=== PATIENT | male | born 2000 | race Caucasian/White ===

== ENCOUNTER 2023-12-03 15:03 | Emergency (ER) | payer OTHER, SELFPAY ==
[2023-12-03 15:22] VITALS: BP 130/88; PULSE 94; RESP 16; TEMP 36.8; O2SAT 100
--- NOTE | 2023-12-03 17:37 | ED.SKABFB ---
HPI - Skin/Abscess/Foreign Bdy General Chief complaint: Skin/Abscess/Foreign Body Stated complaint: Abscess Time Seen by Provider: 12/03/23 15:45 Source: patient Mode of arrival: ambulatory Limitations: no limitations History of Present Illness HPI narrative: 23 yo M presents with c/o painful pimple to L side chin. thinks was pimple or ingrown hair. popped two days ago. swelling and pain worse. concerned he needs abx. All systems reviewed and negative except as noted above. Related Data Allergies Allergy/AdvReac Type Severity Reaction Status Date / Time No Known Allergies Allergy Verified 12/03/23 15:06 Review of Systems Review of Systems: CONSTITUTIONAL: Denies fever, chills, or sweats. EYES: Denies visual changes, redness, or discharge. ENT: Denies rhinorrhea, congestion, sore throat, or otalgia. CARDIOVASCULAR: Denies chest pain, palpitations, or edema. RESPIRATORY: Denies cough or dyspnea. GASTROINTESTINAL: Denies abdominal pain, nausea, vomiting, or diarrhea. GENITOURINARY: Denies dysuria or hematuria. SKIN: reports pain and redness after popping pimple MUSCULOSKELETAL: Denies back pain, joint pain, or myalgia. NEUROLOGIC: Denies headache, numbness, or weakness. PSYCHIATRIC: Denies anxiety or depression. All other systems reviewed are negative, except as documented in HPI. [facility] Past Medical History Medical History Syphilis Family History Family History Sibling Diabetes mellitus Asthma Grandparent Hypertension Cerebrovascular accident Family history of Parkinson's disease Social History Social History Smoking status: Current some day smoker Tobacco type: e-cigarettes/vaping Second hand tobacco smoke exposure: No Alcohol intake: current Substance use: current Substance use type: marijuana Lack of Transportation: No Lack of Food: Never True Current Housing: I Have Housing Concerned About Future Housing: No Difficulty Paying Gas/Electric Bills: No Difficulty Paying for Meds: No Currently Unemployed: No Education: High School Diploma/GED Difficulty w/ Childcare or Family Care: No Comments At time of signature, agree with nursing past medical, surgical, social and family history. There is no relevant family history pertinent to the presenting complaint. Exam Narrative: GENERAL: This is a well-nourished, well-developed patient, in no apparent distress. HEAD: normocephalic, atraumatic. EYES: PERRL. Sclera clear/white. Vision is grossly intact. EARS: External ears normal NOSE: External nose normal NECK: Neck supple, non-tender without lymphadenopathy, masses or thyromegaly. CARDIOVASCULAR: Regular rate and rhythm without murmurs, gallops, or rubs. RESPIRATORY: Clear to auscultation. Breath sounds equal bilaterally. No wheezes, rales, or rhonchi. SKIN: warm, Dry, intact with no suspicious lesions or rash, good texture and turgor. erythematous lesion approx. 2cm diameter. tendern on palpation with some mild surrounding erythema. no fluctuance. NEURO: awake, alert, and oriented to person, place and time. There were no obvious focal neurologic abnormalities. EXTREMITIES: No joint tenderness, effusion, or edema noted. Course Course Level of Care: Express Care Visit Vital Signs Vital signs: Vital Signs Temperature 36.8 C 12/03/23 15:22 Pulse Rate 94 12/03/23 15:22 Respiratory Rate 16 12/03/23 15:22 Blood Pressure 130/88 12/03/23 15:22 Pulse Oximetry 100 12/03/23 15:22 Temperature 36.8 C 12/03/23 15:22 Pulse Rate 94 12/03/23 15:22 Respiratory Rate 16 12/03/23 15:22 Blood Pressure 130/88 12/03/23 15:22 Pulse Oximetry 100 12/03/23 15:22 Reviewed MDM - Skin/Abscess/Foreign Bdy MDM Narrative Medical decision making narrative: Patient is aware of diagnos
== END 2023-12-03 16:00 | disposition home or self-care (01) ==
PROVIDERS: Emergency Provider Nurse Practitioner Family; PCP Family Medicine
DX: L03.211 Cellulitis of face (principal); F17.290 Nicotine dependence, other tobacco product, uncomplicated; F12.90 Cannabis use, unspecified, uncomplicated
CPT/HCPCS: 99213; G0463

== ENCOUNTER 2025-06-16 16:39 | Emergency (ER) | payer OTHER, SELFPAY ==
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
[2025-06-16 16:40] VITALS: BP 125/72; PULSE 73; RESP 15; TEMP 36.7; O2SAT 100
--- OUTSIDE RECORDS SUMMARY | 2025-06-16 16:42 | XMS_ITS | Clinical Summary ---
Author Organization [facility] Physician Office Building [address] [place] [address] Care Team Providers Care Finger Lift Operator Name Role Phone Petr Peralta MD Primary Care Provider [phone] Martina DA SILVA MD, [facility] [phone] Allergies No known active allergies Medications Vyvanse 20 mg capsule Take 1 capsule (20 mg total) by mouth every morning 02/16/2023 Active Active Problems Problem Noted Date Diagnosed Date Epigastric hernia 03/28/2023 Auditory hallucination Visual hallucination Immunizations Immunization Administration Dates Next Due Pfizer SARS-CoV-2 Monovalent Vaccination (12+ Yrs) PURPLE 03/23/2021,03/02/2021 Medical History Medical History Date Comments ADHD (attention deficit hyperactivity disorder) Anxiety Depression Motion sickness Family History Medical History Relation Name Comments Diabetes Brother No Known Problems Father Migraines Mother No Known Problems Sister Relation Name Status Comments Brother Father Mother Sister Social History Tobacco Use Types Packs/Day Years Used Date Smoking Tobacco: Some Days Cigarettes Smokeless Tobacco: Never Tobacco Cessation:Ready to Q uit: No; Counseling Given: Yes Alcohol Use Standard Drinks/Week Comments Yes 0 (1 standard drink = 0.6 oz pur e alcohol) Personal Safety Answer Date Recorded Have you ever been in or are you currently in a harmful physical or emotional relationship or is someone making you feel afraid or unsafe? 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 Gender Identity Not on file Sexual Orientation Not on file Obstetrics History Last Filed Vital Signs Vital Sign Reading Time Taken Comments Blood Pressure 117/86 04/05/2023 12:40 PM CDT Pulse 60 04/05/2023 12:45 PM CDT Temperature 36.2 C (97.1 F) 04/05/2023 12:12 PM CDT Respiratory Rate 12 04/05/2023 12:45 PM CDT Oxygen Saturation 97% 04/05/2023 12:45 PM CDT Inhaled Oxygen Concentration - - Weight 60.3 kg (133 lb) 04/05/2023 10:19 AM CDT Height 180.3 cm (5' 11) 04/05/2023 10:19 AM CDT Body Mass Index 18.55 04/05/2023 10:19 AM CDT Plan of Treatment Health Maintenance Due Date Last Done Comments Depression Screening 2001 Hepatitis C Screening 2001 DTaP/Tdap/Td Vaccine (2 - Tdap) 2012 05 2 Varicella Vaccines (1 of 2 - 13+ 2-dose series) 2014 HPV Vaccines (1 - Male 3-dose series) 2016 Meningococcal B Vaccine (1 o f 2 - Standard) 2017 Regular Well Visit/Exam 18-64 2019 Pneumococcal vaccine <65 (1 of 2 - PCV) 2020 Covid-19 Vaccine (3 - season) 07/13/202410/2021, 03/02/2021 Influenza Vaccine (#1) 2025 09/09/2018 Hepatitis B Screening Completed 07/18/2002 Insurance DESIRAE CIGNA CIGNA CIG Care Teams Finger Lift Operator Relationship Specialty Start Date End Date Petr Peralta MD PCP - General Family Medicine 10/18/18 [place] [id number] [address] Consulting Physician Neurology 10/18/18
--- OUTSIDE RECORDS SUMMARY | 2025-06-16 16:42 | XMS_ITS | Clinical Summary ---
Author Organization [facility] Address [address] [place] [address] Care Team Providers Care Chip Bin Conveyor Tender Name Role Phone Unavailable Primary Care Provider Unavailabl e Source Comments PLEASE NOTE, if this patient is a minor, it may be UNLAWFUL to discuss sensitive information that is contained in these records (such as FAMILY PLANNING, MENTAL HEALTH or SUBSTANCE ABUSE) with the minor patient's parent or other person without the patient's specific authorization.[facility] Allergies No known active allergies Encounters Date Type Department Care Team Description 03/26/2025 2:00 PM CDT Office Visit [facility] [address] [place] [address] [address] from Last 3 Months Social History Tobacco Use Types Packs/Day Years Used Date Smoking Tobacco: Never Assessed Sex and Gender Information Value Date Recorded Sex Assigned at Male 05/06/2025 12:54 PM PDT Legal Sex Male 11:11 AM PDT Gender Identity Male 03/27/2025 2:41 PM PDT Sexual Orientation Kat 05/06/2025 12 :54 PM PDT Plan of Treatment Health Maintenance Due Date Last Done Comments Anxiety Screening 2001 Hepatitis B Screening 2001 Hepatitis C Screening 2001 STI Counseling 2001 Tobacco Screening 2001 Imm-Hepatitis B (2 of 3 - 3-dose series) 08/15/2002 07/18/2002 Imm-Varicella (1 of 2 - 13+ 2-dose series) 2014 Imm-HPV (1 - Male 3-dose series) 2016 Hypertension Screening (#1) 2019 Imm-DTaP/Tdap/Td (2 - Tdap) 2020 03/27/2002 [id number] (3 - 2024-25 season) 2024 021, 03/02/2021 Alcohol and Drug Screen 11/12/2024 Depression Annual Screen 11/12/2024 Imm-Influenza (#1) 2025 HIV Screening 03/23/2026 03/23/2025 Procedures Procedure Name Priority Date/Time Associated Diagnosis Comments GONORRHEA/ CHLAMYDIA TRACHOMATIS, ABSTRACTED Routine 03/23/2025 GONORRHEA/ CHLAMYDIA TRACHOMATIS, ABSTRACTED Routine 03/23/2025 HIV 1/2 RAPID (POCT) [id number] Routine 03/23/2025 from Last 3 Months Results * GONORRHEA/ CHLAMYDIA TRACHOMATIS Urine Routine (03/23/2025) Only the most recent of2 resultswithin the time period is included. CHLAMYDIA NEGATIVE NEGATIVE [facility] NEISSERIA GONORRHEA NEGATIVE NEGATIVE [facility] Urine 03/23/2025 us Provider [facility] BODY FLUIDS AND STOOLS AMBUL ATORY Final Result [facility] [address] [place] [address], [place] [phone] * HIV 1/2 RAPID (POCT) [id number] Routine (03/23/2025) HIV 1/2 AB negative Non-Reactive - Reactive [facility] INTERNAL QC pass [facility] Blood Blood / Unknown 03/23/2025 us Provider [facility] - BLOOD DRAW Final Result Performing Organization Address [facility]/ZIP Co de Phone Number [facility] [address] [place] [address], [place] [phone] from Last 3 Months Insurance CIGNA
--- OUTSIDE RECORDS SUMMARY | 2025-06-16 16:42 | XMS_ITS | Patient Health Record ---
Author Organization [facility] Address [address] [place], [place] [address] Care Team Providers Care Corporate Secretary Name Role Phone Victorino Topete Unavailable [phone] Reason For Referral No Information Plan Of Treatment No Information
--- OUTSIDE RECORDS SUMMARY | 2025-06-16 16:42 | XMS_ITS | Patient Health Record ---
Author Organization [facility] [employer] [facility] Address [address] [place] [address] Care Team Providers Care Ui Software Engineer Name Role Phone Wilbert Carlisle Unavailable [phone] Reason For Referral No Information Medications Medication SIG (Take, Route, Frequency, Duration) Notes Start Date End Date Status Ciprofloxacin-dexAMETHason e 0.3-0.1 % Otic 06/17/2021 Active Immunizations Vaccine Route Administration Date Status Comme nts Meningococcal MCV4P Unknown 07/28/2019 Administered Novel [id number], preservative free Unknown 09/09/2018 Administered Plan Of Treatment No Information Insurance Providers Payer Name Payer Address Payer Phone Subscriber Number Group Number Insured Name Patient Relationship to Insured Coverage Start Date Coverage End Date Cigna [address] MARIA FERNANDA NELSON [phone] [id number] PAULY GARCIA Self - patient is the insured
--- OUTSIDE RECORDS SUMMARY | 2025-06-16 16:42 | XMS_ITS | Referral Summary ---
Author Organization [facility] Physician Office Building [address] [place] [address] Care Team Providers Care Watch Parts Inspector Name Role Phone Petr Peralta MD Primary Care Provider [phone] Martina DA SILVA MD, [facility] [phone] Allergies No known active allergies Medications Vyvanse 20 mg capsule Take 1 capsule (20 mg total) by mouth every morning 02/16/2023 Active Active Problems Problem Noted Date Diagnosed Date Epigastric hernia 03/28/2023 Auditory hallucination Visual hallucination Immunizations Immunization Administration Dates Next Due Pfizer SARS-CoV-2 Monovalent Vaccination (12+ Yrs) PURPLE 03/23/2021,03/02/2021 Social History Tobacco Use Types Packs/Day Years [...] on file 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 Gender Identity Not on file Sexual Orientation Not on file Last Filed Vital Signs Vital Sign Reading [...] 04/05/2023 10:19 AM CDT Plan of Treatment Not on file Insurance [employer] [facility] [employer] Address: [facility] [address] [place] [address] CIGNA [facility] [employer] Address: [address] [place] [address] [facility] [employer] Address: [address] [place] [address] CIGNA [facility] [employer] Address: [address] [place] [address] Care Teams Watch Parts Inspector Relationship Specialty Start Date End Date Petr Peralta MD PCP - General Family Medicine 10/18/18 [place] [address] [place] [address] Consulting Physician Neurology 10/18/18
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
[2025-06-16] MEDS: CYCLOBENZAPRINE HCL 10 MG TABLET PO (18:03)
[2025-06-16] MEDS: ACETAMINOPHEN 500 MG TABLET 1000 MG PO (18:03)
[2025-06-16 18:15] LABS: Hematocrit 43.6 % (42.0-52.0); Hemoglobin 14.8 g/dL (14.0-18.0); Immature Granulocyte Percent A 0.3 % (0-0.5); Lymphocytes Absolute Auto 2.24 K/mm3 (0.9-3.2); Mean Corpuscular HGB Conc 33.9 g/dl (32-36); Mean Corpuscular Hemoglobin 31.6 pg (26-34); Mean Corpuscular Volume 93.0 fl (80-100); Nucleated Red Blood Cells Absolute Auto 0.000 K/mm3 (0.0-0.012); Nucleated Red Blood Cells Perc 0.0 % (0.0-0.2); Platelet Count Result 228 k/mm3 (150-375); Red Blood Count 4.69 M/mm3 (4.6-6.20); White Blood Count 6.6 K/mm3 (4.5-10.0)
[2025-06-16 18:32] LABS: INR 1.1; Prothrombin Time 14.0 Seconds (11.1-14.7)
--- OUTSIDE RECORDS SUMMARY | 2025-06-16 18:32 | XMS_ITS | Clinical Summary ---
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 Gender Identity Not on file Sexual Orientation [...] Hepatitis B Screening Completed 07/18/2002 Insurance [employer] [facility] [employer] Address: [address] [place] [address] [employer] [facility] [employer] Address: [address] [place] [address] [employer] [facility] [employer] Address: [address] [place] [address] [employer] [facility] [employer] Address: [facility] [id number] [place] [address] Care Teams Netting Weaver Relationship Specialty Start Date End Date Petr Peralta MD PCP - General Family Medicine 10/18/18 [place] [address] [address] Consulting Physician Neurology 10/18/18
--- OUTSIDE RECORDS SUMMARY | 2025-06-16 18:32 | XMS_ITS | Clinical Summary ---
Author Organization [facility] Address [address] [place] [address] Care Team Providers Care Breakdown Person Name Role Phone Unavailable Primary Care Provider [...] Description 03/26/2025 2:00 PM CDT Office Visit [address] [id number] [place] [id number] [address] from Last 3 Months [...] 2019 Imm-DTaP/Tdap/Td (2 - Tdap) 2020 03/27/2002 [id number] (3 - 2024-25 season) 2024 021, 03/02/2021 Alcohol and Drug Screen 11/12/2024 Depression Annual Screen 11/12/2024 Imm-Influenza (#1) 2025 HIV Screening 03/23/2026 03/23/2025 Procedures Procedure Name Priority Date/Time Associated Diagnosis Comments GONORRHEA/ CHLAMYDIA TRACHOMATIS, ABSTRACTED Routine 03/23/2025 GONORRHEA/ CHLAMYDIA TRACHOMATIS, ABSTRACTED Routine 03/23/2025 HIV 1/2 RAPID (POCT) 08239 Routine 03/23/2025 from Last 3 Months Results * GONORRHEA/ CHLAMYDIA TRACHOMATIS Urine Routine (03/23/2025) Only the most recent of2 resultswithin the time period is included. CHLAMYDIA NEGATIVE NEGATIVE [facility] NEISSERIA GONORRHEA NEGATIVE NEGATIVE [facility] Urine 03/23/2025 us Provider [facility] BODY FLUIDS AND STOOLS AMBUL ATORY Final Result [facility] [address] [place] [id number], [place] [phone] * HIV 1/2 RAPID (POCT) 97400 Routine (03/23/2025) HIV 1/2 AB negative Non-Reactive - Reactive [facility] INTERNAL QC pass [facility] Blood Blood / Unknown 03/23/2025 us Provider [facility] - BLOOD DRAW Final Result Performing Organization Address [facility]/ZIP Co de Phone Number [facility] [address] [place] [id number], [place] [phone] from Last 3 Months Insurance [employer]
--- OUTSIDE RECORDS SUMMARY | 2025-06-16 18:32 | XMS_ITS | Referral Summary ---
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 Name Role Phone Petr Peralta MD Primary Care Provider [phone] Martina DA SILVA MD, [facility] [phone] Allergies No known active allergies Medications Vyvanse [...] on file Legal Sex Male 3:15 PM [employer] Gender Identity Not on file Sexual Orientation [...] Plan of Treatment Not on file Insurance [email or web address] [facility] [facility] [employer] Address: [facility] [address] [place] [address] [employer] [facility] [employer] Address: [address] [place] [address] [facility] [email or web address] Address: [address] [place] [address] [employer] [facility] [employer] Address: [address] [place] [address] 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
[2025-06-16 18:33] LABS: Partial Thromboplastin Time 34.1 Seconds (22.3-36.8)
[2025-06-16 18:48] VITALS: BP 103/72; PULSE 60; RESP 18; O2SAT 100
[2025-06-16 19:25] LABS: Alanine Aminotransferase 14 U/L (6-50); Albumin Level 4.9 g/dL (3.5-5.1); Alkaline Phosphatase 62 U/L (38-126); Anion Gap 8 mmol/L (4-12); Aspartate Amino Transferase 27 U/L (17-59); Bilirubin,Total 1.3 mg/dL (0.2-1.3); Blood Urea Nitrogen 12 mg/dL (9-20); Calcium 9.3 mg/dL (8.4-10.2); Carbon Dioxide 28 mmol/L (22-30); Chloride 103 mmol/L (98-107); Estimated CRCL calculation 100 ml/min; Estimated Glomerular Filt Rate > 60; Glucose 76 mg/dL (65-110); Lipase 42 U/L (23-300); Potassium 4.0 mmol/L (3.4-5.0); Sodium 139 mmol/L (137-145); Total Protein 7.8 g/dL (6.3-8.2)
== END 2025-06-16 20:08 | disposition left against medical advice (07) ==
PROVIDERS: Emergency Provider Physician Assistant; PCP Family Medicine
DX: S63.502A Unspecified sprain of left wrist, initial encounter (principal); S63.92XA Sprain of unspecified part of left wrist and hand, initial encounter; F17.290 Nicotine dependence, other tobacco product, uncomplicated; V43.52XA Car driver injured in collision with other type car in traffic accident, initial encounter
CPT/HCPCS: 36415; 70450; 70486; 71260; 72125; 73110; 73130; 74177; 80053; 83690; 85025; 85610; 85730; 99284; A9270; Q9967